=== PATIENT | male | born 1985 | race Two or more races ===

== ENCOUNTER 2021-12-25 21:31 | Emergency (ER) | payer OTHER ==
[~2021-12-25] VITALS: Ht 177.8 cm; Wt 68.0 kg
[2021-12-25 21:31] VITALS: BP 130/96
== END 2021-12-26 03:36 | disposition left against medical advice (07) ==
LOC: ER 22:05
DX: R22.0 Localized swelling, mass and lump, head (principal); Z53.21 Procedure and treatment not carried out due to patient leaving prior to being seen by health care provider